=== PATIENT | male | born 1965 | race American Indian/Alaskan Native ===

== ENCOUNTER 2016-11-25 13:41 | Emergency (ER) | payer OTHER ==
[2016-11-25] MEDS ORDERED: ZOFRAN ONE (14:01)
--- NOTE | 2016-11-25 14:05 | Cat Scan Report ---
CT HEAD WITHOUT CONTRAST: HISTORY: Stroke. Serial contiguous axial images were obtained through the cranium. Intravenous contrast material was not administered. The ventricles are normal in size and appearance. There is no mass effect or midline shift. No areas of abnormally increased or decreased attenuation are seen. No mass lesion is seen. The mastoid air cells and visualized portions of the sinuses are normal. IMPRESSION: No acute intracranial process identified. These findings were discussed with Dr. Palomo 1354 hrs.
--- NOTE | 2016-11-25 14:10 | Emergency Department Report ---
ED Neuro Deficit HPI - General Stated Complaint: CHEST PAIN Time Seen by Provider: 11/25/16 13:57 Source: EMS Limitations: Altered Mental Status, Physical Limitation - History of Present Illness Initial Comments: EMS reports that patient was transferred for Chest pain. EMS reports upon arrival to the ER patient had sudden decline in mental status. Reports in transport had a NIHSS of 0 and was following commands. In the ER the patient is exhibiting some improvement after CT Head and is able to track with his eyes, and respond to commands altho still dysarthric. Patient able to raise his hands up but not his b/l LE. Shortly afterwards the patient declined again and had abdominal breathing, and back to initial presentation in the ER. Location: speech, left face, dysarthria, left arm, right arm, left leg, right leg, ataxia, altered Presenting Symptoms: Present: Unable to Speak Clearly, Altered Mental Status - Related Data Home Medications: Home Medications Medication Instructions Recorded Confirmed Last Taken Allopurinol [Zyloprim] 300 mg PO QDAY 04/01/16 11/25/16 Unknown AtorvaSTATin [Lipitor] 10 mg PO DAILY 04/01/16 11/25/16 Unknown Clopidogrel Bisulfate [Plavix] 75 mg PO DAILY 04/01/16 11/25/16 Unknown Escitalopram Oxalate [Lexapro] 20 mg PO DAILY 04/01/16 11/25/16 Unknown Glimepiride 1 mg PO DAILY 04/01/16 11/25/16 Unknown Nortriptyline [Pamelor] 25 mg PO DAILY 04/01/16 11/25/16 Unknown [place]-3 Acid Ethyl Esters [Lovaza] 1 gm PO QDAY 04/01/16 11/25/16 Unknown Propranolol HCl [Propranolol HCl 60 mg PO DAILY 04/01/16 11/25/16 Unknown ER] AtorvaSTATin [Lipitor] 80 mg PO QHS 11/25/16 11/25/16 Unknown Divalproex [Beau STERLING] 3 tab PO DAILY 11/25/16 11/25/16 Unknown Fenofibrate [Lofibra] 54 mg PO QDAY 11/25/16 11/25/16 Unknown Januvia 50 - 500 mg PO BID 11/25/16 11/25/16 Unknown Meclizine HCl [Meclizine CHEW] 25 mg PO DAILY 11/25/16 11/25/16 Unknown Metformin HCl [Glucophage] 1,000 mg PO BID 11/25/16 11/25/16 Unknown traMADol [Ultram] 50 mg PO Q6HR PRN 11/25/16 11/25/16 Unknown Allergies/Adverse Reactions: Allergies Allergy/AdvReac Type Severity Reaction Status Date / Time No Known Allergies Allergy Verified 07/09/15 11:21 ED Review of Systems ROS: Stated complaint: CHEST PAIN Other details as noted in HPI Comment: Unobtainable due to pts medical conditions ED Past Medical Hx - Past Medical History Hx Hypertension: Yes Hx CVA: Yes (2009 no deficits) Hx Heart Attack/AMI: Yes Hx Diabetes: Yes Additional medical history: "heart murmur" "high cholesterol" - Social History Smoking Status: Unknown if ever smoked Substance Use Type: None - Medications Home Medications: Home Medications Medication Instructions Recorded Confirmed Last Taken Type Allopurinol [Zyloprim] 300 mg PO QDAY 04/01/16 11/25/16 Unknown History AtorvaSTATin [Lipitor] 10 mg PO DAILY 04/01/16 11/25/16 Unknown History Clopidogrel Bisulfate [Plavix] 75 mg PO DAILY 04/01/16 11/25/16 Unknown History Escitalopram Oxalate [Lexapro] 20 mg PO DAILY 04/01/16 11/25/16 Unknown History Glimepiride 1 mg PO DAILY 04/01/16 11/25/16 Unknown History Nortriptyline [Pamelor] 25 mg PO DAILY 04/01/16 11/25/16 Unknown History [place]-3 Acid Ethyl Esters [Lovaza] 1 gm PO QDAY 04/01/16 11/25/16 Unknown History Propranolol HCl [Propranolol HCl 60 mg PO DAILY 04/01/16 11/25/16 Unknown History ER] AtorvaSTATin [Lipitor] 80 mg PO QHS 11/25/16 11/25/16 Unknown History Divalproex [Beau STERLING] 3 tab PO DAILY 11/25/16 11/25/16 Unknown History Fenofibrate [Lofibra] 54 mg PO QDAY 11/25/16 11/25/16 Unknown History Januvia 50 - 500 mg PO BID 11/25/16 11/25/16 Unknown History Meclizine HCl [Meclizine CHEW] 25 mg PO DAILY 11/25/16 11/25/16 Unknown History Metformin HCl [Glucophage] 1,000 mg PO BID 11/25/16 11/25/16 Unknown History traMADol [Ultram] 50 mg PO Q6HR PRN 11/25/16 11/25/16 Unknown History ED Neuro Physical Exam - General Suspected Stroke: Yes - Neurological Exam Neurological exam: Present: altered - NIHSS Assessment Interval: Baseline 1a. Level of Consciousness: not alert, arousable 1b. LOC Questions: answers no questions correctly 1c. LOC Commands: performs no tasks correctly 2. Best Gaze: partial gaze palsy 3. Visual: no visual loss 4. Facial Palsy: minor paralysis 5b. Motor Arm Right: no gravity effort 5a. Motor Arm Left: no gravity effort 6a. Motor Leg Left: no gravity effort 6b. Motor Leg Right: no gravity effort 7. Limb Ataxia: present 2 limbs 8. Sensory: normal 9. Best Language: severe aphasia 10. Dysarthria: severe dysarthria 11. Extinction/Inattention: no abnormality Total Score: 25 Stroke Severity: Severe Stroke - Other Other exam information: GENERAL: Patient in acute distress HEAD: Normocephalic, atraumatic EYES: PERRLA HEART: Regular rate and rhythm, no murmur, S1-S2 are auscultated, pulses are symmetric LUNGS: Abdominal breathing, retractions, ABDOMEN: Normal bowel sounds, no tenderness, no rebound, no guarding, no masses , no CVA tenderness MUSCULOSKELETAL: Normal joint range of motion, no redness, no swelling, no tenderness NEUROLOGIC: Alert, NIHSS 25 SKIN: diaphoretic ED Course Vital Signs 11/25/16 11/25/16 11/25/16 13:40 13:41 13:56 Temperature Pulse Rate 70 88 Respiratory 40 H 15 Rate Blood Pressure 185/88 185/88 O2 Sat by Pulse 100 97 98 Oximetry 11/25/16 11/25/16 11/25/16 13:58 14:00 14:02 Temperature Pulse Rate 101 H 99 H 85 Respiratory 24 29 H 28 H Rate Blood Pressure 185/88 185/88 159/96 O2 Sat by Pulse 99 97 98 Oximetry 11/25/16 11/25/16 11/25/16 14:06 14:08 14:09 Temperature Pulse Rate 97 H 88 100 H Respiratory 26 H 26 H 30 H Rate Blood Pressure 185/106 185/106 182/107 O2 Sat by Pulse 100 100 100 Oximetry 0611/25/16 11/25/16 14:10 14:12 14:13 Temperature Pulse Rate 110 H 132 H 118 H Respiratory 29 H 27 H 14 Rate Blood Pressure 200/88 199/115 167/141 O2 Sat by Pulse 99 99 100 Oximetry 11/25/16 11/25/16 11/25/16 14:14 14:15 14:16 Temperature Pulse Rate 111 H 106 H 102 H Respiratory 17 22 21 Rate Blood Pressure 186/112 158/105 158/105 O2 Sat by Pulse 100 100 100 Oximetry 11/25/16 11/25/16 11/25/16 14:18 14:19 14:20 Temperature Pulse Rate 97 H 97 H 93 H Respiratory 20 20 20 Rate Blood Pressure 147/94 147/94 147/97 O2 Sat by Pulse 99 99 99 Oximetry 11/25/16 11/25/16 11/25/16 14:22 14:23 14:24 Temperature Pulse Rate 92 H 105 H 92 H Respiratory 18 20 Rate Blood Pressure 147/97 147/97 147/97 O2 Sat by Pulse 99 99 Oximetry 11/25/16 11/25/16 11/25/16 14:25 14:26 14:28 Temperature Pulse Rate 93 H 91 H 89 Respiratory 20 20 20 Rate Blood Pressure 153/97 153/97 153/97 O2 Sat by Pulse 100 100 100 Oximetry 11/25/16 11/25/16 11/25/16 14:30 14:32 14:34 Temperature Pulse Rate 93 H 90 89 Respiratory 20 19 20 Rate Blood Pressure 149/98 149/98 150/95 O2 Sat by Pulse 100 100 100 Oximetry 11/25/16 11/25/16 11/25/16 14:36 14:38 14:40 Temperature Pulse Rate 90 88 100 H Respiratory 20 20 20 Rate Blood Pressure 150/95 150/95 179/105 O2 Sat by Pulse 100 100 100 Oximetry 11/25/16 11/25/16 11/25/16 14:42 14:44 14:45 Temperature Pulse Rate 95 H 86 88 Respiratory 19 20 21 Rate Blood Pressure 179/105 179/105 165/100 O2 Sat by Pulse 100 100 99 Oximetry 11/25/16 11/25/16 11/25/16 14:46 14:47 14:48 Temperature Pulse Rate 84 85 86 Respiratory 18 19 Rate Blood Pressure 165/100 165/100 165/100 O2 Sat by Pulse 99 99 99 Oximetry 11/25/16 11/25/16 11/25/16 14:50 14:52 14:54 Temperature Pulse Rate 83 72 78 Respiratory 18 20 19 Rate Blood Pressure 176/99 176/99 176/99 O2 Sat by Pulse 100 99 99 Oximetry 11/25/16 11/25/16 11/25/16 14:55 14:56 14:58 Temperature Pulse Rate 72 88 92 H Respiratory 20 18 20 Rate Blood Pressure 174/95 147/97 147/97 O2 Sat by Pulse 99 100 100 Oximetry 11/25/16 11/25/16 11/25/16 15:00 15:02 15:04 Temperature Pulse Rate 88 86 81 Respiratory 18 19 14 Rate Blood Pressure 167/94 167/94 167/94 O2 Sat by Pulse 97 100 100 Oximetry 11/25/16 11/25/16 11/25/16 15:05 15:06 15:08 Temperature Pulse Rate 71 73 71 Respiratory 20 17 20 Rate Blood Pressure 170/89 170/89 170/89 O2 Sat by Pulse 100 100 100 Oximetry 11/25/16 11/25/16 11/25/16 15:10 15:12 15:14 Temperature Pulse Rate 72 82 82 Respiratory 20 20 20 Rate Blood Pressure 160/88 160/88 160/88 O2 Sat by Pulse 100 100 100 Oximetry 11/25/16 11/25/16 11/25/16 15:15 15:16 15:18 Temperature Pulse Rate 84 82 82 Respiratory 20 20 20 Rate Blood Pressure 161/97 161/97 161/97 O2 Sat by Pulse 100 100 100 Oximetry 11/25/16 11/25/16 11/25/16 15:20 15:22 15:30 Temperature 98.7 F Pulse Rate 77 83 93 H Respiratory 20 20 20 Rate Blood Pressure 160/93 160/93 170/102 O2 Sat by Pulse 100 100 100 Oximetry 11/25/16 11/25/16 11/25/16 15:58 16:00 16:05 Temperature Pulse Rate 98 H 98 H 98 H Respiratory 16 Rate Blood Pressure 170/102 157/93 157/93 O2 Sat by Pulse 100 100 100 Oximetry - Intubation Time Out Performed: Yes Sedative: Etomidate Paralytic: Rocuronium Laryngoscope: Sarah Size: 4 ET Tube Size: 7.5 Tube Secured Depth (cm): 23 Tube Secured Location: lips Tube Placement Confirmation: visualized tube passing t, equal breath sounds bilat, no breath sounds over epi, confirmation by capnometr Patient Tolerated Procedure: well Intubation Complications: none - Lab Data Result diagrams: 11/25/16 14:08 11/25/16 14:08 Lab Results 11/25/16 11/25/16 11/25/16 Range/Units 14:08 14:08 14:08 WBC 14.8 H (4.5-11.0) K/mm3 RBC 5.26 H (3.65-5.03) M/mm3 Hgb 14.8 (11.8-15.2) gm/dl Hct 44.9 (35.5-45.6) % MCV 86 (84-94) fl MCH 28 (28-32) pg MCHC 33 (32-34) % RDW 14.3 (13.2-15.2) % Plt Count 440 (140-440) K/mm3 Lymph % (Auto) 17.8 (13.4-35.0) % [place] % (Auto) 9.3 H (0.0-7.3) % Eos % (Auto) 0.1 (0.0-4.3) % Baso % (Auto) 0.5 (0.0-1.8) % Lymph # 2.6 (1.2-5.4) K/mm3 [place]ascade # 1.4 H (0.0-0.8) K/mm3 Eos # 0.0 (0.0-0.4) K/mm3 Baso # 0.1 (0.0-0.1) K/mm3 Seg Neutrophils % 72.3 H (40.0-70.0) % Seg Neutrophils # 10.7 H (1.8-7.7) K/mm3 PT 13.3 (12.2-14.9) Sec. INR 1.02 (0.87-1.13) APTT 22.1 L (24.2-36.6) Sec. Thrombin Time (15.1-19.6) Sec. POC ABG pH (7.35-7.45) POC ABG pCO2 (35-45) POC ABG pO2 (80-105) POC ABG HCO3 POC ABG Total CO2 POC ABG O2 Sat POC ABG Base Excess FiO2 % Sodium 138 (137-145) mmol/L Potassium 3.7 (3.6-5.0) mmol/L Chloride 94.9 L (98-107) mmol/L Carbon Dioxide 21 L (22-30) mmol/L Anion Gap 26 mmol/L BUN 7 L (9-20) mg/dL Creatinine 0.9 (0.8-1.5) mg/dL Estimated GFR > 60 ml/min BUN/Creatinine Ratio 7.77 % Glucose 331 H (75-100) mg/dL Calcium 8.9 (8.4-10.2) mg/dL Troponin T < 0.010 (0.00-0.029) ng/mL 11/25/16 11/25/16 Range/Units 14:08 14:33 WBC (4.5-11.0) K/mm3 RBC (3.65-5.03) M/mm3 Hgb (11.8-15.2) gm/dl Hct (35.5-45.6) % MCV (84-94) fl MCH (28-32) pg MCHC (32-34) % RDW (13.2-15.2) % Plt Count (140-440) K/mm3 Lymph % (Auto) (13.4-35.0) % [place] % (Auto) (0.0-7.3) % Eos % (Auto) (0.0-4.3) % Baso % (Auto) (0.0-1.8) % Lymph # (1.2-5.4) K/mm3 [place] # (0.0-0.8) K/mm3 Eos # (0.0-0.4) K/mm3 Baso # (0.0-0.1) K/mm3 Seg Neutrophils % (40.0-70.0) % Seg Neutrophils # (1.8-7.7) K/mm3 PT (12.2-14.9) Sec. INR (0.87-1.13) APTT (24.2-36.6) Sec. Thrombin Time 16.8 (15.1-19.6) Sec. POC ABG pH 7.346 L (7.35-7.45) POC ABG pCO2 41.6 (35-45) POC ABG pO2 95 (80-105) POC ABG HCO3 22.8 POC ABG Total CO2 24 POC ABG O2 Sat 97 POC ABG Base Excess -3 FiO2 40 % Sodium (137-145) mmol/L Potassium (3.6-5.0) mmol/L Chloride (98-107) mmol/L Carbon Dioxide (22-30) mmol/L Anion Gap mmol/L BUN (9-20) mg/dL Creatinine (0.8-1.5) mg/dL Estimated GFR ml/min BUN/Creatinine Ratio % Glucose (75-100) mg/dL Calcium (8.4-10.2) mg/dL Troponin T (0.00-0.029) ng/mL When compared to previous EKG there are: no significant change - Radiology Data Radiology results: report reviewed - Medical Decision Making At 1450 Dr. De Los Santos neuro fellow at [facility] reports he will call back with neuro ICU bed availability. Request CTA head evaluation and push images to regional PACs At 1440 Dr. Andrews teleneurology agrees to evaluate the patient. At 1455 Dr. Andrews request CTA head and if normal ok for patient to remain at [facility] for evaluation. At 1515 Dr. Garrido neuro ICU at [facility] request patient receive CTA head/neck and push images to regional PACs. Request a text once study is completed so that she can reveiw the images to decide disposition. Request a text message be sent to [phone] that images are available on PACs for reveiw once CTA completed. Stroke nurse in the ER contacted Dr. Andrews who says if CTA head normal patient can be monitored at [facility]. At 1630 Dr. Garrido request patient be transferred to [facility] for potentially diagnostic angiogram with concerns for basilar occlusion. Critical Care Time: Yes Critical care time in (mins) excluding proc time.: 42 Critical care attestation.: If time is entered above; I have spent that time in minutes in the direct care of this critically ill patient, excluding procedure time. ED Disposition Clinical Impression: Hypertensive emergency CVA (cerebral vascular accident) Qualifiers: CVA mechanism: unspecified Qualified Code(s): I63.9 - Cerebral infarction, unspecified Respiratory failure Qualifiers: Chronicity: acute Respiratory failure complication: unspecified whether with hypoxia or hypercapnia Qualified Code(s): J96.00 - Acute respiratory failure, unspecified whether with hypoxia or hypercapnia Disposition: DC/TX-70 ANOTHER TYPE HLTHCARE Is pt being admited?: No Condition: Stable Instructions: Hypertension (ED) Referrals: PRIMARY CARE, [Primary Care Provider] - 3-5 Days Time of Disposition: 16:39
[2016-11-25] MEDS ORDERED: ACTIVASE ONE (14:14)
[2016-11-25] MEDS ORDERED: NORMODYNE IV ONE (14:18)
[2016-11-25 14:21] LABS: Basophils % (Auto) 0.5 % (0.0-1.8); Eosinophils % (Auto) 0.1 % (0.0-4.3); Hematocrit 44.9 % (35.5-45.6); Hemoglobin 14.8 gm/dl (11.8-15.2); Mean Corpuscular HGB Conc 33 % (32-34); Mean Corpuscular Hemoglobin 28 pg (28-32); Mean Corpuscular Volume 86 fl (84-94); Platelet Count 440 K/mm3 (140-440); Red Blood Count 5.26 M/mm3 (3.65-5.03); Red Cell Distribution Width 14.3 % (13.2-15.2); White Blood Count 14.8 K/mm3 (4.5-11.0)
[2016-11-25] MEDS ORDERED: DIPRIVAN 10 MG/ML 1,000 MG/100 ML BOTTLE IV ONE (14:22)
[2016-11-25 14:28] LABS: INR 1.02 (0.87-1.13)
[2016-11-25 14:29] LABS: Partial Thromboplastin Time 22.1 Sec. (24.2-36.6)
[2016-11-25] MEDS ORDERED: ZEMURON IV ONE (14:29)
[2016-11-25] MEDS ORDERED: AMIDATE IV ONE (14:29)
[2016-11-25 14:44] LABS: Anion Gap 26 mmol/L; BUN/Creatinine Ratio 7.77; Blood Urea Nitrogen 7 mg/dL (9-20); Calcium 8.9 mg/dL (8.4-10.2); Carbon Dioxide 21 mmol/L (22-30); Chloride 94.9 mmol/L (98-107); Glucose 331 mg/dL (75-100); Potassium 3.7 mmol/L (3.6-5.0); Sodium 138 mmol/L (137-145)
[2016-11-25 14:49] LABS: ISTAT Base Excess -3; ISTAT HCO3 22.8; ISTAT PCO2 41.6 (35-45); ISTAT PH 7.346 (7.35-7.45); ISTAT PO2 95 (80-105); ISTAT SO2 97; ISTAT TCO2 24
[2016-11-25] MEDS ORDERED: NACL 0.9% IV ONE (14:58)
[2016-11-25] MEDS ORDERED: ACTIVASE IV ONE ×2 (14:58)
--- NOTE | 2016-11-25 15:00 | XRay Report ---
AP CHEST: HISTORY: Tachycardia An endotracheal tube has been inserted which terminates 3.8 cm superior to the siddharth. AP view of the chest demonstrates a normal mediastinal and cardiac contour with clear lungs and normal bony and soft tissue structures. IMPRESSION: No acute cardiopulmonary process appreciated.
[2016-11-25] MEDS ORDERED: ARTIFICIAL TEARS OPHTH OINT OU PRN (16:11)
[2016-11-25] MEDS ORDERED: VASELINE LIP THERAPY TP PRN (16:11)
--- NOTE | 2016-11-25 16:36 | Admit Criteria Form ---
Admission Criteria Documentation: HYPERTENSION Clinical Indications for Admission to Inpatient Care ( Place "X" for any and all applicable criteria): Admission is indicated for ANY ONE of the following(1)(2)(3)(4): [X ]I. Hypertensive emergency, with evidence of acute and progressing target organ disease as indicated by ANY ONE of the following: [ X]a) Hypertensive encephalopathy (eg, confusion, altered mental status) [ ]b) Cerebral infarction [ ]c) Intracranial hemorrhage [ ]d) Myocardial ischemia or infarction [ ]e) Pulmonary edema [ ]f) Aortic dissection [ ]g) Seizure [ ]h) Acute renal insufficiency [ ]i) Papilledema [ ]j) Microangiopathic hemolytic anemia [ ]II. Adrenergic crisis (eg, severe hypertension due to pheochromocytoma crisis, cocaine or amphetamine intoxication, or clonidine withdrawal) [ ]III. Severe hypertension (SBP greater than 180 mmHg or DBP greater than 110 mmHg or greater than the 95th percentile for age, gender, and height in pediatric patients) that cannot be controlled (eg, to SBP less than 160 mmHg and DBP less than 100 mmHg in adults) by treatment with oral medication in emergency department or observation care Extended stay beyond goal length of stay may be needed for(11)(12)(13): [ ]a) Persistent hypertensive encephalopathy [ ]b) Continuation of pulmonary edema [ ]c) Recurring or persistent severe hypertension [ ]d) Target organ damage (eg, angina, stroke, aortic dissection) [ ]e) Associated renal insufficiency The original [employer] content created by [employer] has been revised. The portions of the content which have been revised are identified through the use of italic text or in bold, and [facility] has neither reviewed nor approved the modified material. All other unmodified content is copyright [employer]. Please see references footnoted in the original [employer] includes the [facility] edition 2016 Admission Criteria Met: Yes
--- NOTE | 2016-11-25 16:40 | Cat Scan Report ---
CTA NECK INDICATION: CVA. COMPARISON: 04/04/2016. FINDINGS: CTA neck performed utilizing IV contrast. Axial, sagittal, coronal and MIP reconstructions obtained. Patent aortic arch and major arising branch vessels, including bilateral carotids and vertebral arteries. Right vertebral artery again smaller than the left. Slight aortic arch calcifications. Mild right carotid bulb atherosclerotic calcification. Patent jugular veins, right larger than left. Unremarkable thyroid. Patient now intubated with fluid seen surrounding it in the neck. Proximal esophagus also noted fluid-filled. Bilateral upper lobe atelectasis, right more than left. No size significant adenopathy. Unremarkable bones. Dental disease noted. CONCLUSION: Normal CTA neck with various other findings, as described. Please correlate. Thank you for the opportunity to participate in this patient's care.
--- NOTE | 2016-11-25 16:41 | Cat Scan Report ---
CTA HEAD INDICATION: CVA. COMPARISON: None similar. FINDINGS: CTA of the brain performed following IV contrast. Multiplanar reconstructions, including post processing angiographic reformations obtained. Small vertebral artery branches appeared to dissipate with reconstitution of a tiny, though patent basilar artery with approximately 2-3 mm caliber as on axial series 2, images [id number]. Patent remainder [place] of [place]. No hemodynamically significant stenosis, occlusion or aneurysm identified. Slight atherosclerotic internal carotid artery calcifications. Patent major venous sinuses. Mild bilateral maxillary sinus mucosal thickening inferiorly. Clear remainder imaged paranasal sinuses and mastoid air cells. Bilateral maxillary periapical cysts. Few radiopaque dental fillings and missing teeth. Endotracheal tube noted. CONCLUSION: 1. 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 Otherwise patent head CTA. 2. Patient now intubated with sinus disease and few other incidental findings, as above. Thank you for the opportunity to participate in this patient's care.
[2016-11-25] MEDS ORDERED: DIPRIVAN 10 MG/ML 1,000 MG/100 ML BOTTLE IV SCH (17:00)
[2016-11-25] MEDS ORDERED: NACL 0.9% 500 ML IV SCH (17:00)
[2016-11-25 17:42] VITALS: BP 115/71
== END 2016-11-25 18:00 | disposition other institution (70) ==
LOC: ED 13:41
DX: I63.9 Cerebral infarction, unspecified (principal); J96.00 Acute respiratory failure, unspecified whether with hypoxia or hypercapnia; I10 Essential (primary) hypertension; E11.9 Type 2 diabetes mellitus without complications
CPT/HCPCS: 31500; 36415; 70450; 70496; 70498; 71010; 80048; 82803; 82962; 84484; 85025; 85610; 85670; 85730; 87205; 93005; 93010; 96374; 99291; J2405; J2704; J2997; Q9967